=== PATIENT | male | born 1940 | race Caucasian/White ===

== ENCOUNTER 2016-11-16 19:59 | Emergency (ER) | payer MEDICARE, OTHER ==
[2016-11-16 20:43] LABS: Bilirubin Negative (Negative); Blood, Urine Large (Negative); Clarity Cloudy (Clear); Glucose, Urine (Dipstick) Negative (Negative); Leukocyte Negative (Negative); Nitrite Negative (Negative); Protein, Urine (Dipstick) 30 mg/dL (Neg-Trace); RBC/HPF GREATER THAN 50-TNTC HPF (0-3); Urobilinogen 0.2 mg/dL (0.2-1.0); pH, Urine 5.5 (5.0-9.0)
[2016-11-16 20:44] LABS: Bacteria/HPF 3+ HPF (None Seen); Renal Epithelial 0-3 HPF (0-3); Transitional Epithelial 0-3 HPF (0-3); WBC/HPF 21-50 HPF (0-3)
[2016-11-16] MEDS ORDERED: Nitrofurantoin Monohyd/M-Cryst 100 MG CAP ONE (21:12)
== END 2016-11-16 21:23 | disposition home or self-care (01) ==
LOC: MADERS 19:59
DX: N39.0 Urinary tract infection, site not specified (principal); E78.5 Hyperlipidemia, unspecified; I10 Essential (primary) hypertension; M19.90 Unspecified osteoarthritis, unspecified site; Z79.899 Other long term (current) drug therapy
CPT/HCPCS: 81001; 87086; 99283

== ENCOUNTER 2017-03-19 08:07 | Outpatient (CLI) | payer MEDICARE, OTHER ==
[2017-03-19 08:43] LABS: Hemoglobin 16.7 g/dL (14.0-18.0); Mean Corpuscular HGB CONC 31.9 g/dL (32.0-36.0); Mean Corpuscular Hemoglobin 31.2 pg (27.0-31.0); Mean Corpuscular Volume 97.8 fl (80.0-94.0); Mean Platelet Volume 9.7 fL (7.4-10.4); Platelet Count 224 thou/uL (130-400); RBC Distribution Width 11.8 % (11.5-14.5); Red Blood Cell (RBC) Count 5.36 mill/uL (4.70-6.10); White Blood Cell (WBC) Count 7.7 thou/uL (4.8-10.8)
[2017-03-19 09:30] LABS: PTT 28.4 SEC (22.9-36.1); Prothrombin Time 12.9 SEC (12.0-14.7)
[2017-03-19 09:39] LABS: ALT (SGPT) 31 U/L (8-55); AST (SGOT) 25 U/L (5-34); Albumin 4.2 g/dL (3.4-4.8); Alkaline Phosphatase 88 U/L (40-150); Anion Gap 11 mmol/L (10-20); BUN (Urea Nitrogen) 19 mg/dL (8.4-25.7); Bilirubin, Total 0.6 mg/dL (0.2-1.2); Calc. Creatinine Clearance 0 mL/min (70-130); Calcium 9.6 mg/dL (7.8-10.44); Carbon Dioxide 28 mmol/L (23-31); Cardiac Risk 4.2 (Less than 4.5); Chloride 104 mmol/L (98-107); Cholesterol 123 mg/dl (< 200 Desired); Estimated GFR-MDRD 72; Globulin 2.5 g/dL (2.4-3.5); Glucose 101 mg/dL (83-110); HDL Cholesterol 29 mg/dL (>60 Neg Risk); LDL Cholesterol, Calculated 66 mg/dL; Potassium 4.4 mmol/L (3.5-5.1); Protein, Total 6.7 g/dL (5.8-8.1); Sodium 139 mmol/L (136-145); Triglycerides 138 mg/dL (Less than 150)
== END 2017-03-19 08:08 | disposition home or self-care (01) ==
LOC: MADEKG 08:07
PROVIDERS: ATTEND Internal Medicine Cardiovascular Disease
DX: Z01.818 Encounter for other preprocedural examination (principal); R94.39 Abnormal result of other cardiovascular function study
CPT/HCPCS: 36415; 80053; 80061; 85027; 85610; 85730

== ENCOUNTER 2019-08-24 18:05 | Emergency (ER) | payer MEDICARE, OTHER ==
--- NOTE | 2019-08-24 18:29 | RAD ---
SIGNLE VIEW OF THE CHEST: 08/24/19 COMPARISON: 07/05/19. HISTORY: Shortness of breath. FINDINGS: Single view of the chest shows a normal sized cardiomediastinal silhouette. A calcified granuloma pro jects over the mid and left thorax. There is no evidence of consolidation or pleural effusion. IMPRESSION: No evidence of acute cardiopulmonary disease. POS: [facility]
[2019-08-24 18:37] LABS: INR-International Normal Ratio 0.9; Prothrombin Time 12.1 SEC (12.0-14.7)
[2019-08-24 18:43] LABS: #Basophils 0.1 thou/uL (0.0-0.2); #Lymphocytes 3.2 thou/uL (1.20-3.40); #Monocytes 1.5 thou/uL (0.11-0.59); #Neutrophils 7.3 thou/uL (1.40-6.50); %Basophils 0.9 % (0.0-1.0); %Eosinophils 7.8 % (0.0-10.0); %Lymphocytes 24.6 % (21.0-51.0); %Monocytes 11.4 % (0.0-10.0); %Neutrophils 55.4 % (42.0-75.0); Mean Corpuscular HGB CONC 32.3 g/dL (32.0-36.0); Mean Corpuscular Hemoglobin 31.2 pg (27.0-31.0); Mean Corpuscular Volume 96.5 fL (78.0-98.0); Mean Platelet Volume 8.1 fL (7.4-10.4); Platelet Count 240 thou/uL (130-400); RBC Distribution Width 11.5 % (11.5-14.5); Red Blood Cell (RBC) Count 5.44 mill/uL (4.70-6.10); White Blood Cell (WBC) Count 13.1 thou/uL (4.8-10.8)
[2019-08-24] MEDS ORDERED: methylPREDNISolone Sod Succ/PF 125 MG/2 ML VIAL ONE (18:49)
[2019-08-24] MEDS ORDERED: Aspirin 325 MG TAB ONE (18:49)
[2019-08-24 18:50] LABS: ALT (SGPT) 34 U/L (8-55); AST (SGOT) 33 U/L (5-34); Albumin 4.5 g/dL (3.4-4.8); Alkaline Phosphatase 80 U/L (40-110); Anion Gap 14 mmol/L (10-20); BUN (Urea Nitrogen) 11 mg/dL (8.4-25.7); Bilirubin, Total 0.5 mg/dL (0.2-1.2); Calc. Creatinine Clearance 0 mL/min (70-130); Calcium 9.5 mg/dL (7.8-10.44); Carbon Dioxide 25 mmol/L (23-31); Chloride 101 mmol/L (98-107); Estimated GFR-MDRD Greater than 90; Globulin 2.6 g/dL (2.4-3.5); Glucose 120 mg/dL (83-110); Potassium 4.3 mmol/L (3.5-5.1); Protein, Total 7.1 g/dL (5.8-8.1); Sodium 136 mmol/L (136-145)
[2019-08-24] MEDS ORDERED: Doxycycline 100 MG CAP ONE (19:59)
== END 2019-08-24 21:13 | disposition home or self-care (01) ==
LOC: MADERS 18:05
DX: J44.1 Chronic obstructive pulmonary disease with (acute) exacerbation (principal); E78.1 Pure hyperglyceridemia; E78.5 Hyperlipidemia, unspecified; I10 Essential (primary) hypertension; M19.90 Unspecified osteoarthritis, unspecified site; Z87.891 Personal history of nicotine dependence; I25.10 Atherosclerotic heart disease of native coronary artery without angina pectoris
CPT/HCPCS: 71045; 80053; 83880; 84484; 85025; 85610; 93005; 96374; J2930; J7620

== ENCOUNTER 2019-09-05 01:42 | Emergency (ER) | payer MEDICARE, OTHER ==
[2019-09-05] MEDS ORDERED: Dexamethasone 10 MG/ML VIAL ONE (02:06)
[2019-09-05 02:17] LABS: #Basophils 0.1 thou/uL (0.0-0.2); #Eosinphils 1.1 thou/uL (0.0-0.7); #Lymphocytes 2.4 thou/uL (1.20-3.40); #Monocytes 1.8 thou/uL (0.11-0.59); #Neutrophils 13.1 thou/uL (1.40-6.50); %Basophils 0.6 % (0.0-1.0); %Eosinophils 6.2 % (0.0-10.0); %Lymphocytes 12.9 % (21.0-51.0); %Monocytes 9.5 % (0.0-10.0); %Neutrophils 70.9 % (42.0-75.0); Hemoglobin 16.8 g/dL (14.0-18.0); Mean Corpuscular HGB CONC 31.4 g/dL (32.0-36.0); Mean Corpuscular Hemoglobin 31.1 pg (27.0-31.0); Mean Platelet Volume 7.7 fL (7.4-10.4); Platelet Count 201 thou/uL (130-400); RBC Distribution Width 11.8 % (11.5-14.5); White Blood Cell (WBC) Count 18.5 thou/uL (4.8-10.8)
[2019-09-05 02:32] LABS: ALT (SGPT) 31 U/L (8-55); AST (SGOT) 23 U/L (5-34); Albumin 4.3 g/dL (3.4-4.8); Alkaline Phosphatase 65 U/L (40-110); Anion Gap 15 mmol/L (10-20); BUN (Urea Nitrogen) 10 mg/dL (8.4-25.7); Bilirubin, Total 0.7 mg/dL (0.2-1.2); Calc. Creatinine Clearance 0 mL/min (70-130); Calcium 9.3 mg/dL (7.8-10.44); Carbon Dioxide 24 mmol/L (23-31); Chloride 102 mmol/L (98-107); Estimated GFR-MDRD Greater than 90; Globulin 2.5 g/dL (2.4-3.5); Glucose 115 mg/dL (83-110); Potassium 4.1 mmol/L (3.5-5.1); Protein, Total 6.8 g/dL (5.8-8.1); Sodium 137 mmol/L (136-145)
--- NOTE | 2019-09-05 07:35 | RAD ---
SINGLE VIEW CHEST: Date: 09/05/2019 COMPARISON: 08/24/2019. HISTORY: Dyspnea. FINDINGS: Single view of the chest shows a normal sized cardiomediastinal silhouette. A calcified granuloma pro jects over the mid left lung. There is no evidence of consolidation or pleural effusion. A calcified granuloma is also seen in the right lower lobe. IMPRESSION: No evidence of acute cardiopulmonary disease. POS: [facility]
== END 2019-09-05 03:19 | disposition home or self-care (01) ==
LOC: MADERS 01:42
DX: J44.1 Chronic obstructive pulmonary disease with (acute) exacerbation (principal); M19.90 Unspecified osteoarthritis, unspecified site; E78.5 Hyperlipidemia, unspecified; E87.1 Hypo-osmolality and hyponatremia; M10.9 Gout, unspecified; I10 Essential (primary) hypertension; I25.10 Atherosclerotic heart disease of native coronary artery without angina pectoris; Z87.891 Personal history of nicotine dependence
CPT/HCPCS: 71045; 80053; 83880; 84484; 85025; 93005; 96374; J1100; J7620

== ENCOUNTER 2020-03-06 07:23 | Outpatient (CLI) | payer MEDICARE, OTHER | END 2020-03-06 07:24 | disposition home or self-care (01) | LOC: MADLAB 07:23 | PROVIDERS: ATTEND Urology | DX: C61 Malignant neoplasm of prostate (principal) | CPT/HCPCS: 36415; 84153 ==

== ENCOUNTER 2020-04-12 08:55 | Inpatient (IN) | payer MEDICARE, OTHER ==
--- NOTE | 2020-04-12 09:48 | RAD ---
CHEST 1 VIEW: HISTORY: Dyspnea. COMPARISON: Radiograph of 09/05/2019. FINDINGS: Lungs are mildly hypoinflated. Calcified granulomas of the lungs. No pneumothorax. No significant effusion. IMPRESSION: Mild lung hypoinflation with calcified granulomas. No acute intrathoracic abnormality. POS: [facility]
[2020-04-12] MEDS ORDERED: Sodium Chloride 0.9% 250 ML 250 ML ONE (09:51)
[2020-04-12] MEDS ORDERED: Azithromycin 500 MG VIAL ONE (09:51)
[2020-04-12] MEDS ORDERED: cefTRIAXone\\ROCEPHIN 1 GM VIAL ONE (09:51)
[2020-04-12] MEDS ORDERED: Sodium Chloride 0.9% 100 ML ONE (09:51)
[2020-04-12] MEDS ORDERED: methylPREDNISolone Sod Succ/PF 125 MG/2 ML VIAL ONE (09:51)
[2020-04-12] MEDS ORDERED: Aspirin Chewable 81 MG TAB ONE (09:51)
[2020-04-12 10:05] LABS: ALT (SGPT) 34 U/L (8-55); AST (SGOT) 31 U/L (5-34); Alkaline Phosphatase 83 U/L (40-110); Anion Gap 17 mmol/L (10-20); BUN (Urea Nitrogen) 14 mg/dL (8.4-25.7); CK (CPK) 80 U/L (30-200); Calc. Creatinine Clearance 0 mL/min (70-130); Calcium 9.3 mg/dL (7.8-10.44); Carbon Dioxide 21 mmol/L (23-31); Chloride 101 mmol/L (98-107); Estimated GFR-MDRD 81; Globulin 3.1 g/dL (2.4-3.5); Glucose 121 mg/dL (83-110); Protein, Total 7.1 g/dL (5.8-8.1); Sodium 135 mmol/L (136-145)
[2020-04-12 10:17] LABS: %Eosinophils 0.7 % (0.0-10.0); %Lymphocytes 14.2 % (21.0-51.0); %Monocytes 13.2 % (0.0-10.0); %Neutrophils 71.1 % (42.0-75.0); Hemoglobin 16.4 g/dL (14.0-18.0); Mean Corpuscular HGB CONC 32.3 g/dL (32.0-36.0); Mean Corpuscular Hemoglobin 31.1 pg (27.0-31.0); Mean Corpuscular Volume 96.2 fL (78.0-98.0); Mean Platelet Volume 8.6 fL (7.4-10.4); Platelet Count 235 thou/uL (130-400); RBC Distribution Width 11.4 % (11.5-14.5); Red Blood Cell (RBC) Count 5.29 mill/uL (4.70-6.10); White Blood Cell (WBC) Count 15.6 thou/uL (4.8-10.8)
[2020-04-12 10:18] LABS: #Basophils 0.1 thou/uL (0.0-0.2); #Eosinphils 0.1 thou/uL (0.0-0.7); #Lymphocytes 2.2 thou/uL (1.20-3.40); #Monocytes 2.1 thou/uL (0.11-0.59); #Neutrophils 11.1 thou/uL (1.40-6.50); %Basophils 0.9 % (0.0-1.0)
[2020-04-12 12:53] VITALS: BMI 31.6
[2020-04-12] MEDS ORDERED: Albuterol 200 PUFF (6.7GM INHALER) INH PRN (14:07)
[2020-04-12] MEDS ORDERED: Ondansetron ODT 4 MG TAB SL PRN (14:15)
[2020-04-12] MEDS ORDERED: Sodium Chloride 0.9% 500 ML IV SCH (14:15)
[2020-04-12] MEDS ORDERED: Ondansetron PF 4 MG/2 ML Vial IVP PRN (14:16)
[2020-04-12] MEDS ORDERED: Gabapentin 300 MG CAP PO SCH (15:00)
[2020-04-12] MEDS: Icosapent Ethyl [Vascepa] 1 GM Capsule PO SCH (17:28)
[2020-04-12] MEDS ORDERED: methylPREDNISolone Sod Succ/PF 125 MG/2 ML VIAL IVP SCH (18:00)
[2020-04-12] MEDS ORDERED: Mometasone/Formoterol 200/5 60 PUFF INH SCH (19:00)
[2020-04-12] MEDS: Mometasone/Formoterol 200/5 60 PUFF INH SCH (20:39)
[2020-04-12] MEDS: Montelukast Sodium 10 mg Tablet PO SCH (20:39)
[2020-04-12] MEDS: Atorvastatin Calcium 10 MG TAB PO SCH (20:39)
[2020-04-13 00:39] LABS: SARS-CoV-2 MS2 Positive; SARS-CoV-2 N Gene Negative; SARS-CoV-2 S Gene Negative; SARS-CoV-2 by NAA Not Detected (NotDetected); SARS-CoV-2 orf1ab Negative
--- NOTE | 2020-04-13 05:09 | HP ---
CHIEF COMPLAINT: Short of breath and coughing. HISTORY OF PRESENT ILLNESS: The patient is a 79-year-old white male, who has a history of chronic asthma and coronary artery disease. He is independent of all his ADLs. For the last 2 to 3 days, he has been having a little increased cough that has become a little worse with some yellowish sputum production. He has been a little more short of breath and he has also felt like he has been running a low-grade fever. He has not had any COVID exposure that he has known of. He has had no headache, body aches. He denies any loss of taste or smell and no change in his bowel habits. The patient came to the emergency room because of the increased cough and shortness of breath. In the emergency room, his O2 saturation on room air was 89% to 90%, but he was afebrile. Initially, his blood pressure was a little low, but has since normalized. In the emergency room, he underwent a chest x- ray which showed mild hypoinflation. There was calcified granulomas present. There was no effusion and no definite infiltrate. His lab work showed H and H of 16.4 and 50.9 [place] [address] with 71% segs, 14% lymphocytes, and platelet count of 235,000. Sodium 135, potassium 4, BUN 14, creatinine 0.91, FBS 121. His C-reactive protein was 13. His B type natriuretic peptide was 37. In the emergency room, the patient had a nasal swab for COVID ANNA collected and also two blood cultures. He was placed on supplemental O2 at 2 L bringing his O2 saturation up to 95%, and he was also given Rocephin 1 g IV, azithromycin 500 mg IV and Solu-Medrol 125 mg IV, and he was then admitted with a diagnosis of COPD exacerbation with possibility of a COVID infection. The patient was seen soon after his admission, and he said since he has had the medicines and placed on the O2, he feels much better, his breathing he feels like is down to normal. PAST MEDICAL HISTORY: The patient said he has chronic asthma, but was told he does not have COPD. He did smoke for many years, but has been off cigarettes for many years. He has coronary artery disease and has undergone stents x2. He has hypertension, hyperlipidemia, GERD. He has had an anterior cervical diskectomy and fusion. He has also had surgery on his low back for herniated discs x2, had surgery on his right wrist for arthritic change in the wrist. Generalized osteoarthritis. History of gout. PRESENT MEDICINES: 1. Coenzyme Q10 100 mg daily. 2. Livalo 4 mg daily. 3. Omeprazole 20 mg b.i.d. 4. Singulair 10 mg daily. 5. Metoprolol succinate 50 mg daily. 6. Loratadine 10 mg daily. 7. Vascepa 2 tablets b.i.d. 8. Advair 500/50 one inhalation b.i.d. 9. Zetia 10 mg daily. 10. Vasotec 20 mg daily. 11. Aspirin 81 mg daily. 12. Allopurinol 100 mg daily. ALLERGIES: NO KNOWN ALLERGIES. REVIEW OF SYSTEMS: CONSTITUTIONAL: Patient denies any recent weight gain or loss. The patient said for the last couple days he has felt like he has had a low- grade fever. EYES, EARS, NOSE, AND THROAT: No complaints. PULMONARY: Patient has had increased cough, a little yellowish sputum production and a little shortness of breath, particularly with exertion. He has had no orthopnea. CARDIOVASCULAR: No chest pain. GI: No nausea, vomiting, or change in bowel habits. : No complaints. NEUROLOGIC: The patient denies any headaches. He has had no focal weakness. MUSCULOSKELETAL: The patient has arthritis and has trouble with some stiffness and soreness in joints. DERMATOLOGIC: No complaints. HABITS: The patient used to smoke for many years, but has been off cigarettes for many years. Alcohol, patient will have one drink in the evenings after work. SOCIAL HISTORY: The patient is , lives with his . 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 ADLs, the patient is independent of all his ADLs and instrumental ADLs. PHYSICAL EXAMINATION: GENERAL: Shows a very pleasant 79-year-old white male, who is sitting on the side of his bed. He is alert, talkative, and appears in no distress. His weight is 246. VITAL SIGNS: His temp is 98.2, pulse 65, respirations 18, O2 saturation 95% on 2 L, blood pressure 136/71. HEENT: Head, normocephalic. Eyes, pupils equal, round, and reactive. Ears, TMs are clear. Nose, normal. Mouth and throat, normal. NECK: Carotids are equal and strong. No bruits. Thyroid not enlarged. LUNGS: Have good breath sounds. The lungs are clear. HEART: Regular rate, no murmurs. ABDOMEN: Soft. No organomegaly. EXTREMITIES: No edema. DERMATOLOGIC: No rash. NEUROLOGIC: The patient alert, oriented x3. The patient has good muscle strength that is symmetric throughout. There is no focal weakness. IMPRESSION: 1. Chronic asthma with acute exacerbation. a. Complicated by mild hypoxemia. 2. Coronary artery disease. a. Status post stents x2. b. Presently asymptomatic. 3. Hypertension. 4. Hyperlipidemia. 5. Gastroesophageal reflux disease. 6. Generalized osteoarthritis. PLAN: The patient has been admitted to the hospital with symptoms of an exacerbation of his chronic asthma. He has been tested for COVID-19 by nasal swab with ANNA, results are pending. The patient will be placed in isolation. For now, we will continue the supplemental O2 and close observation. We will continue the IV antibiotics with Rocephin and azithromycin and also steroids. We will place him on Lovenox for DVT prophylaxis. Repeat his lab work in the morning. CODE STATUS: Full code. Job ID: [id number] [facility]
[2020-04-13 05:53] LABS: #Basophils 0.1 thou/uL (0.0-0.2); #Lymphocytes 2.2 thou/uL (1.20-3.40); #Monocytes 1.2 thou/uL (0.11-0.59); #Neutrophils 14.8 thou/uL (1.40-6.50); %Basophils 0.8 % (0.0-1.0); %Lymphocytes 11.9 % (21.0-51.0); %Monocytes 6.5 % (0.0-10.0); %Neutrophils 80.8 % (42.0-75.0); Hemoglobin 16.2 g/dL (14.0-18.0); Mean Corpuscular HGB CONC 31.6 g/dL (32.0-36.0); Mean Corpuscular Hemoglobin 30.5 pg (27.0-31.0); Mean Corpuscular Volume 96.3 fL (78.0-98.0); Mean Platelet Volume 8.4 fL (7.4-10.4); Platelet Count 278 thou/uL (130-400); RBC Distribution Width 11.5 % (11.5-14.5); Red Blood Cell (RBC) Count 5.32 mill/uL (4.70-6.10); White Blood Cell (WBC) Count 18.3 thou/uL (4.8-10.8)
[2020-04-13 06:06] LABS: Anion Gap 17 mmol/L (10-20); BUN (Urea Nitrogen) 14 mg/dL (8.4-25.7); Calc. Creatinine Clearance 119 mL/min (70-130); Calcium 9.7 mg/dL (7.8-10.44); Carbon Dioxide 22 mmol/L (23-31); Chloride 102 mmol/L (98-107); Estimated GFR-MDRD Greater than 90; Glucose 158 mg/dL (83-110); Potassium 3.9 mmol/L (3.5-5.1); Sodium 137 mmol/L (136-145); Uric Acid 5.9 mg/dL (3.5-7.2)
[2020-04-13] MEDS: cefTRIAXone\\ROCEPHIN 1 GM in Sodium Chloride 0.9% 100 ML IVPB SCH (09:10)
[2020-04-13] MEDS: Allopurinol 100 MG TAB PO SCH (09:12)
[2020-04-13] MEDS: Ubidecarenone 50 MG CAP PO SCH (09:12)
[2020-04-13] MEDS: Mometasone/Formoterol 200/5 60 PUFF INH SCH ×2 (09:12→20:23)
[2020-04-13] MEDS: Aspirin 81 mg Enteric Coated Tablet PO SCH (09:14)
[2020-04-13] MEDS: Lisinopril 10 MG TAB PO SCH (09:14)
[2020-04-13] MEDS: Dexamethasone 6 MG in Sodium Chloride 0.9% 50 ML IVPB SCH (09:14)
[2020-04-13] MEDS: Ezetimibe 10 MG TAB PO SCH (09:26)
[2020-04-13] MEDS: Enoxaparin Sodium 40 MG/0.4 ML SYRINGE SC SCH (09:28)
[2020-04-13] MEDS: Icosapent Ethyl [Vascepa] 1 GM Capsule PO SCH ×2 (09:30→16:57)
[2020-04-13] MEDS ORDERED: Azithromycin 500 MG in Sodium Chloride 0.9% 250 ML 250 ML IVPB SCH (11:00)
--- NOTE | 2020-04-13 11:16 | PRG ---
DATE OF SERVICE: 04/13/2020 SUBJECTIVE: The patient said he feels a lot better today. His breathing he says is good. He says he has chronic asthma and his breathing is much better today. He does not feel like he is wheezing. He said ordinarily his O2 saturation at home is 90% to 92%. OBJECTIVE: GENERAL: Patient is sitting up on the side of his bed. He is alert, talkative, does not appear in any distress or short of breath. VITAL SIGNS: His temp is 98.2, pulse 79, respirations 18, O2 saturation 95% on 2 L, blood pressure 132/82. LUNGS: Clear and has good breath sounds, are better today. There are no wheezes or rhonchi, no rales. HEART: Regular rate. EXTREMITIES: No edema. LABORATORY DATA: His H and H are 16.2 and 51.2, white blood cell count [id number] with 81% segs, 12% lymphocytes, and a platelet count of 278,000. Sodium 137, potassium 3.9, BUN 14, creatinine 0.82. His glucose was 158. His [id number] PCR was negative, not detected. ASSESSMENT: 1. Chronic asthma with acute exacerbation. a. Improved. b. O2 saturation 95% on room air. 2. Chronic asthma. a. Controlled on Advair. b. Usually patient said his O2 saturation is 90% to 92% on room air. 3. Coronary artery disease. a. Status post stents x2. b. Presently asymptomatic. 4. Hypertension, controlled. 5. Hyperlipidemia. 6. Gastroesophageal reflux disease. 7. Generalized osteoarthritis. PLAN: The patient looks better. His white cell count has gone up probably as a result of the steroids that were started yesterday. His swabs for influenza A and B were both negative. Blood cultures are pending. We will continue present care. I have removed his isolation since his COVID-19 ANNA was negative. We will allow him up ad av. We will try and see if he can do without his O2. We will repeat his CBC tomorrow. Anticipate he will probably be able to be discharged tomorrow. Job ID: [id number] [facility]
[2020-04-13] MEDS: Montelukast Sodium 10 mg Tablet PO SCH (20:22)
[2020-04-13] MEDS: Atorvastatin Calcium 10 MG TAB PO SCH (20:22)
[2020-04-14 00:44] VITALS: TEMP 97.7
[2020-04-14 06:48] LABS: Anion Gap 13 mmol/L (10-20); BUN (Urea Nitrogen) 15 mg/dL (8.4-25.7); Calc. Creatinine Clearance 121 mL/min (70-130); Calcium 9.2 mg/dL (7.8-10.44); Carbon Dioxide 26 mmol/L (23-31); Chloride 104 mmol/L (98-107); Estimated GFR-MDRD Greater than 90; Glucose 118 mg/dL (83-110); Potassium 4.2 mmol/L (3.5-5.1); Sodium 139 mmol/L (136-145)
[2020-04-14 07:02] LABS: #Basophils 0.1 thou/uL (0.0-0.2); #Lymphocytes 2.2 thou/uL (1.20-3.40); #Monocytes 1.4 thou/uL (0.11-0.59); #Neutrophils 10.8 thou/uL (1.40-6.50); %Basophils 0.7 % (0.0-1.0); %Eosinophils 0.2 % (0.0-10.0); %Lymphocytes 15.2 % (21.0-51.0); %Monocytes 9.4 % (0.0-10.0); %Neutrophils 74.5 % (42.0-75.0); Hemoglobin 14.9 g/dL (14.0-18.0); Mean Corpuscular HGB CONC 31.8 g/dL (32.0-36.0); Mean Corpuscular Hemoglobin 30.9 pg (27.0-31.0); Mean Corpuscular Volume 97.2 fL (78.0-98.0); Mean Platelet Volume 7.9 fL (7.4-10.4); Platelet Count 282 thou/uL (130-400); RBC Distribution Width 11.5 % (11.5-14.5); Red Blood Cell (RBC) Count 4.83 mill/uL (4.70-6.10); White Blood Cell (WBC) Count 14.5 thou/uL (4.8-10.8)
[2020-04-14] MEDS: Dexamethasone 6 MG in Sodium Chloride 0.9% 50 ML IVPB SCH (08:16)
[2020-04-14] MEDS: Aspirin 81 mg Enteric Coated Tablet PO SCH (08:22)
[2020-04-14] MEDS: Ubidecarenone 50 MG CAP PO SCH (08:22)
[2020-04-14] MEDS: Allopurinol 100 MG TAB PO SCH (08:22)
[2020-04-14] MEDS: Lisinopril 10 MG TAB PO SCH (08:23)
[2020-04-14] MEDS: Ezetimibe 10 MG TAB PO SCH (08:23)
[2020-04-14] MEDS: Enoxaparin Sodium 40 MG/0.4 ML SYRINGE SC SCH (08:23)
[2020-04-14] MEDS: Icosapent Ethyl [Vascepa] 1 GM Capsule PO SCH (08:24)
[2020-04-14] MEDS: Mometasone/Formoterol 200/5 60 PUFF INH SCH (08:25)
[2020-04-14 08:45] VITALS: BP 140/79
[2020-04-14] MEDS: cefTRIAXone\\ROCEPHIN 1 GM in Sodium Chloride 0.9% 100 ML IVPB SCH (09:16)
--- NOTE | 2020-04-14 14:15 | DIS ---
DATE OF ADMISSION: 04/12/2020 DATE OF DISCHARGE: 04/14/2020 FINAL DIAGNOSES: 1. Chronic asthma with acute exacerbation resolving. a. O2 saturation 95% on room air. 2. Chronic asthma. a. Controlled on Advair. 3. Coronary artery disease status post stents x2. a. Presently asymptomatic. 4. Hypertension. 5. Hyperlipidemia. 6. Gastroesophageal reflux disease. 7. Generalized osteoarthritis. SUMMARY: The patient is a very pleasant 79-year-old male who has a history of chronic asthma that he manages with Advair. He is under the care of rn stars, Dr. Paulino Kumar, in [place]. He also has a history of coronary artery disease. He has had two stents and presently asymptomatic. He has hypertension, hyperlipidemia, and generalized osteoarthritis. The patient presented to the emergency room on the day of admission complaining of increased shortness of breath, increased cough and he had a yellowish sputum production. He said he was feeling short of breath with exertion and felt like he had a low-grade fever. He did not have any COVID exposure. In the emergency room, he was evaluated and his O2 saturations on room air were 89% to 90%. He was afebrile and blood pressure initially was a little low, but normalized. His hemoglobin and hematocrit were 16.4 and 50.9 with a white blood cell count of 15,600 with 71% segs, 14% lymphocytes. His B type natriuretic peptide was 37. His chest x-ray showed that the lungs had no acute changes. There is no infiltrate. No effusion or masses present. Nasal swab with ANNA was collected for COVID. Blood cultures were drawn. The patient was placed on supplemental O2 at 2 L. His ferritin level was elevated at 818 and his C-reactive protein was 13. The patient was started on IV steroids, was given initial dose of Solu-Medrol 125 mg and then was given ceftriaxone and azithromycin. He was then admitted with a diagnoses of chronic asthma with acute exacerbation. He was initially placed in isolation, later his nasal swab for ANNA PCR for COVID came back was negative. His blood cultures came back negative. By the , he was feeling much better. Breathing he said was back to his normal and he remain clear on lung exam and O2 saturation was excellent, was in the high 90s on the 2 L. He was tried off the O2 and he was able to maintain an O2 saturation of 94% to 96% on room air. He remained afebrile. His white cell count on the had gone up to 18,000 with 81% segs. It was felt to be from the steroids he had received on 03/2020. The white cell count dropped to 14.5 with 75% segs, 15% lymphocytes, and platelet count of 282. On 04/14, he was feeling fine. His breathing he said was normal. The O2 saturation was 94% to 95% on room air. He remained afebrile. His condition improved such it felt that he could be managed at home. He felt that he had an acute exacerbation of his chronic asthma. The patient will be discharged on three more days of his dexamethasone 6 mg and azithromycin for three more days and we will send him home on Omnicef for six days, then he will follow up with his pulmonary doctor, Dr. Kumar, in a week or two. DISPOSITION: Diet: Regular diet, no added salt. Activities: Gradually increase his activities back to his normal routine. MEDICATIONS: 1. Proventil inhaler two puffs every 4 hours as needed. 2. Albuterol 100 mg daily. 3. Aspirin 81 mg daily. 4. Azithromycin 500 mg orally x3 days. 5. Omnicef 300 mg b.i.d. x6 days. 6. Coenzyme 100 mg daily. 7. Dexamethasone 6 mg daily x3 days. 8. Zetia 10 mg daily. 9. Vascepa 1 g two b.i.d. 10. Lisinopril 20 mg daily. 11. Metoprolol 50 mg daily. 12. Singulair 10 mg daily. 13. . 14. Livalo 4 mg daily. 15. Advair 500/50 one inhalation b.i.d. FOLLOWUP: The patient will need to see his regular doctor, Dr. Kumar, in followup in one to two weeks. CODE STATUS: Full code. Job ID: [id number] [facility]
--- NOTE | 2020-04-18 12:04 | PQF ---
CLINICAL DOCUMENTATION CLARIFICATION FORM: Dear : Prem Norman MD Date / Time: 04/18/2020 Please exercise your independent, professional judgment in responding to the clarification form. Clinical indicators are provided on the bottom of this form for your review Please check appropriate box(es) to clarify if the following diagnosis has been ruled in our ruled out: [ y ] Ruled in COPD Exacerbation [ y ] Continue to treat [ ] Resolved [ ] Ruled out COPD Exacerbation [ ] Improving [ ] Cannot rule out diagnosis [ ] Other diagnosis (Please specify if any) [ ] Unable to determine In addition, please specify: Present on Admission (POA): [ y] Yes [ ] No [ ] Unable to determine Physician Signature: Date/Time: For continuity of documentation, please document condition throughout progress notes and discharge summary. Thank You. To be completed by CDI/Coding staff for physician review: Present Clinical Indicators - Signs / Symptoms / Labs Results and Location in Medical Record [x] COPD exacerbation ED provider report on 04/12 [x] He did require supplemental oxygen due to borderline oxygen saturation, as low as 89 to 90% on room air ED provider report on 04/12 [x] Patient has increased cough, a little yellowish sputum production & a lite SOB H&P on 04/13 [x] He was then admitted with a diagnosis of COPD exacerbation H&P on 04/13 Present Risk Factors Results and Location in Medical Record [x] History of asthma and COPD ED provider report on 04/12 [ ] Present Treatments Results and Location in Medical Record [x] Discharge medication: Proventil inhaler two puffs every 4 hours, advair 500/50 one inhalation b.i.d Discharge summary on 04/14 [x] Albuterol 2puff Medication from 04/12 to 04/14 [ ] [ ] CDS/Engineering Vice President Signature: AAS Phone #: Date/Time: 04/18/2020 This is a permanent part of the Medical Record [facility]
== END 2020-04-14 10:10 | disposition home or self-care (01) | DRG 202 ==
LOC: MADERS 08:55 → MADMS 10:45
PROVIDERS: ADMIT Family Medicine; ATTEND Family Medicine
PROC: 8E0ZXY6 Isolation (ICD-10-PCS; principal; 2020-04-12)
DX: J45.901 Unspecified asthma with (acute) exacerbation (principal); J44.1 Chronic obstructive pulmonary disease with (acute) exacerbation; M10.9 Gout, unspecified; M19.90 Unspecified osteoarthritis, unspecified site; I10 Essential (primary) hypertension; E78.5 Hyperlipidemia, unspecified; Z85.51 Personal history of malignant neoplasm of bladder; Z92.21 Personal history of antineoplastic chemotherapy; Z85.46 Personal history of malignant neoplasm of prostate; Z90.79 Acquired absence of other genital organ(s); Z98.890 Other specified postprocedural states; Z79.82 Long term (current) use of aspirin; Z87.891 Personal history of nicotine dependence; Z79.899 Other long term (current) drug therapy; I25.10 Atherosclerotic heart disease of native coronary artery without angina pectoris; Z95.5 Presence of coronary angioplasty implant and graft; K21.9 Gastro-esophageal reflux disease without esophagitis; Z20.828 Contact with and (suspected) exposure to other viral communicable diseases
CPT/HCPCS: 71045; 80048; 80053; 82550; 82728; 83605; 83880; 84484; 84550; 85025; 86140; 87040; 87635; 87804; 93005; 94760; 96365; 96367; 96375; J0456; J0696; J1100; J1650; J2930; J3490; J7050; U0003

== ENCOUNTER 2020-06-04 00:30 | Emergency (ER) | payer MEDICARE, OTHER ==
[2020-06-04 02:00] LABS: Eosinophils 1 % (0-10); Hemoglobin 17.2 g/dL (14.0-18.0); Lymphocytes 45 % (21-51); MDiff Complete? YES; Mean Corpuscular Hemoglobin 30.9 pg (27.0-31.0); Mean Corpuscular Volume 96.5 fL (78.0-98.0); Mean Platelet Volume 7.8 fL (7.4-10.4); Monocytes 9 % (0-10); Neutrophil 45 % (42-75); Platelet Count 196 thou/uL (130-400); Platelet Morphology Comment Appears Adequate; RBC Distribution Width 11.9 % (11.5-14.5); RBC Morphology Normal; Red Blood Cell (RBC) Count 5.59 mill/uL (4.70-6.10); White Blood Cell (WBC) Count 14.5 thou/uL (4.8-10.8)
[2020-06-04 02:20] LABS: ALT (SGPT) 50 U/L (8-55); AST (SGOT) 43 U/L (5-34); Albumin 4.2 g/dL (3.4-4.8); Alkaline Phosphatase 90 U/L (40-110); Anion Gap 17 mmol/L (10-20); BUN (Urea Nitrogen) 21 mg/dL (8.4-25.7); Bilirubin, Total 0.5 mg/dL (0.2-1.2); Calc. Creatinine Clearance 0 mL/min (70-130); Calcium 9.3 mg/dL (7.8-10.44); Carbon Dioxide 22 mmol/L (23-31); Chloride 102 mmol/L (98-107); Globulin 2.5 g/dL (2.4-3.5); Glucose 105 mg/dL (83-110); Potassium 4.3 mmol/L (3.5-5.1); Protein, Total 6.7 g/dL (5.8-8.1); Sodium 137 mmol/L (136-145)
[2020-06-04 02:28] LABS: CKMB 5.3 ng/mL (0-6.6)
[2020-06-04] MEDS ORDERED: Sodium Chloride 0.9% 1,000 ML BAG ONE (10:05)
[2020-06-04] MEDS ORDERED: Amiodarone 150 MG/3 ML VIAL ONE (10:05)
[2020-06-04] MEDS ORDERED: EPINEPHrine 1 MG/10 ML Abboject SYRINGE ONE (10:05)
[2020-06-04] MEDS ORDERED: Lidocaine 2% PF 100 mg/5 ml Syringe ONE (10:05)
[2020-06-04] MEDS ORDERED: Calcium Chloride 1 GM/10 ML Abboject SYRINGE ONE (10:05)
[2020-06-04] MEDS ORDERED: Sodium Bicarb 50 MEQ/50 ML Abboject 8.4% SYRINGE ONE (10:05)
== END 2020-06-04 03:01 | disposition expired ==
LOC: MADERS 00:35
DX: I46.9 Cardiac arrest, cause unspecified (principal); M19.90 Unspecified osteoarthritis, unspecified site; E78.1 Pure hyperglyceridemia; E78.5 Hyperlipidemia, unspecified; I10 Essential (primary) hypertension; J44.9 Chronic obstructive pulmonary disease, unspecified; I25.10 Atherosclerotic heart disease of native coronary artery without angina pectoris; Z85.51 Personal history of malignant neoplasm of bladder; Z85.46 Personal history of malignant neoplasm of prostate; Z87.891 Personal history of nicotine dependence; Z79.899 Other long term (current) drug therapy; Z79.82 Long term (current) use of aspirin
CPT/HCPCS: 36416; 80053; 82553; 84484; 85025; J0171; J0282; J2001; J7050; J7070